=== PATIENT | male | born 1985 | race Caucasian/White ===

== ENCOUNTER 2020-01-28 00:03 | Emergency (ER) | payer OTHER ==
[~2020-01-28] VITALS: Ht 177.8 cm; Wt 93.0 kg
[2020-01-28 00:05] VITALS: BP 138/100
--- NOTE | 2020-01-28 00:05 | NUR ---
IN CUSTODY BY KEVIN VENCES FOR PREBOOK/ MEDICAL CLEARANCE. PT WAS IN AN ARUGMENT WITH HISS AND GTO ARRESTED FOR VANDALISM. DRANK 10-12 CANS OF ALCOHOL. BP AND HR ARE ELEVATED. ALSO C/O CHEST PAIN. 01/17 PAIN. NKDA. PMH: HTN, CR,PENUMOTHORAX, ALCHOL WITHDRAWL.
--- NOTE | 2020-01-28 00:05 | NUR ---
CARDIAC CAP REFILL < 3, HEART SOUNDS S1S2 PRESENT. A&OX4.
[2020-01-28] MEDS ORDERED: PROPOFOL 1000 MG/100 ML PREMIX 100 ML IV ONE (00:30)
[2020-01-28 00:40] VITALS: BP 138/100
[2020-01-28] MEDS ORDERED: LORazepam 1 MG TAB PO ONE (00:50)
--- NOTE | 2020-01-28 01:21 | NUR ---
PATIENT BIB [employer]. PATIENT EXAMINED BY DR. SHAVER. PATIENT MEDICALLY CLEARED AND RELEASED IN CUSTODY IN STABLE CONDITION. ORIGINAL PRE-BOOK FORM GIVEN TO OFFICER [place], #400.
== END 2020-01-28 01:21 ==
LOC: MED 00:03
DX: R07.9 Chest pain, unspecified (principal); Z02.81 Encounter for paternity testing
CPT/HCPCS: 99283